=== PATIENT | male | born 1945 | race Caucasian/White ===

== ENCOUNTER 2020-03-21 06:10 | Outpatient (NON) | payer MEDICARE, SELFPAY ==
[2020-03-21 07:08] LABS: Phenytoin Dilantin 19 ug/mL (10-20)
== END 2020-03-21 06:11 ==
PROVIDERS: Visit Provider Family Medicine
DX: G40.909 Epilepsy, unspecified, not intractable, without status epilepticus (principal); Z79.899 Other long term (current) drug therapy
CPT/HCPCS: 36415; 80185

== ENCOUNTER 2020-04-18 06:24 | Outpatient (NON) | payer MEDICARE, SELFPAY ==
[2020-04-18 07:25] LABS: Alanine Aminotransferase 28 U/L (16-63); Albumin Level 3.8 g/dL (3.4-5.0); Alkaline Phosphatase 154 U/L (46-116); Anion Gap 6 mmol/L (8-16); Aspartate Amino Transferase 20 U/L (15-37); Bilirubin,Total 0.2 mg/dL (0.00-1.00); Blood Urea Nitrogen 12 mg/dL (7-18); Calcium 8.2 mg/dL (8.5-10.1); Carbon Dioxide 29 mmol/L (21-32); Chloride 96 mmol/L (98-108); Estimated Glomerular Filt Rate > 60; Glucose 84 mg/dL (70-99); Magnesium 2.3 mg/dL (1.8-2.4); Osmolality Calculated 270 mOsm/kg (285-295); Potassium 4.2 mmol/L (3.5-5.1); Sodium 131 mmol/L (136-145); Total Protein 7.4 g/dL (6.4-8.2)
== END 2020-04-18 06:25 ==
LOC: CHSLAB 06:25
PROVIDERS: Visit Provider Family Medicine
DX: E78.5 Hyperlipidemia, unspecified (principal); E83.42 Hypomagnesemia
CPT/HCPCS: 36415; 80053; 83735; 84443

== ENCOUNTER 2020-04-25 06:26 | Outpatient (NON) | payer MEDICARE, SELFPAY ==
[2020-04-25 07:21] LABS: Anion Gap 10 mmol/L (8-16); Blood Urea Nitrogen 9 mg/dL (7-18); Calcium 8.2 mg/dL (8.5-10.1); Carbon Dioxide 26 mmol/L (21-32); Chloride 94 mmol/L (98-108); Estimated Glomerular Filt Rate > 60; Glucose 91 mg/dL (70-99); Osmolality Calculated 268 mOsm/kg (285-295); Potassium 3.7 mmol/L (3.5-5.1); Sodium 130 mmol/L (136-145)
== END 2020-04-25 06:27 ==
PROVIDERS: Visit Provider Family Medicine
DX: G40.802 Other epilepsy, not intractable, without status epilepticus (principal); K21.9 Gastro-esophageal reflux disease without esophagitis; I69.951 Hemiplegia and hemiparesis following unspecified cerebrovascular disease affecting right dominant side
CPT/HCPCS: 36415; 80048

== ENCOUNTER 2020-06-10 07:26 | Outpatient (NON) | payer MEDICARE, SELFPAY ==
[2020-06-10 08:16] LABS: Basophils Absolute Auto 0.04 K/mm3 (0.00-0.10); Basophils Percent Auto 0.8 % (0.0-1.0); Eosinophils Absolute Auto 0.19 K/mm3 (0.02-0.50); Eosinophils Percent Auto 3.6 % (1.0-6.0); Hematocrit 36.6 % (37.0-46.0); Hemoglobin 12.4 g/dL (12.4-15.3); Immature Granulocyte Absolute 0.02 K/mm3 (0.00-0.00); Immature Granulocyte Percent A 0.4 % (0.0-0.0); Lymphocytes Absolute Auto 1.11 K/mm3 (1.10-4.50); Mean Corpuscular HGB Conc 33.9 g/dL (32.0-36.0); Mean Corpuscular Hemoglobin 31.6 pg (27.0-31.0); Mean Corpuscular Volume 93.1 fL (78.0-102.0); Mean Platelet Volume 10.6 fl (8.7-11.0); Monocytes Percent Auto 9.5 % (2.0-11.0); Neutrophils Absolute Auto 3.4 K/mm3 (1.7-7.2); Neutrophils Percent Auto 64.7 % (50.0-70.0); Platelet Count Result 240 K/mm3 (150-420); Red Blood Count 3.93 M/mm3 (4.70-6.10); Red Cell Distribution Width 12.8 % (11.6-14.4); White Blood Count 5.3 K/mm3 (4.8-10.8)
[2020-06-10 08:41] LABS: Alanine Aminotransferase 32 U/L (16-63); Albumin Level 3.5 g/dL (3.4-5.0); Alkaline Phosphatase 156 U/L (46-116); Anion Gap 8 mmol/L (8-16); Aspartate Amino Transferase 20 U/L (15-37); Bilirubin,Total 0.2 mg/dL (0.00-1.00); Blood Urea Nitrogen 8 mg/dL (7-18); Calcium 8.1 mg/dL (8.5-10.1); Carbon Dioxide 28 mmol/L (21-32); Chloride 98 mmol/L (98-108); Estimated Glomerular Filt Rate > 60; Glucose 81 mg/dL (70-99); Osmolality Calculated 275 mOsm/kg (285-295); Phenytoin Dilantin 13 ug/mL (10-20); Potassium 4.2 mmol/L (3.5-5.1); Sodium 134 mmol/L (136-145); Total Protein 7.1 g/dL (6.4-8.2)
== END 2020-06-10 07:27 ==
PROVIDERS: PCP Family Medicine; Visit Provider Family Medicine
DX: Z79.899 Other long term (current) drug therapy (principal)
CPT/HCPCS: 36415; 80053; 80185; 85025

== ENCOUNTER 2020-08-31 06:25 | Outpatient (NON) | payer MEDICARE, SELFPAY ==
[2020-08-31 07:05] LABS: Phenytoin Dilantin 15 ug/mL (10-20)
== END 2020-08-31 06:26 ==
LOC: CHSLAB 06:26
PROVIDERS: Visit Provider Family Medicine
DX: G40.802 Other epilepsy, not intractable, without status epilepticus (principal)
CPT/HCPCS: 36415; 80185

== ENCOUNTER 2020-10-04 11:19 | Outpatient (CLI) | payer MEDICARE, MEDICAID, SELFPAY ==
--- NOTE | ~2020-10-04 | XR_ITS ---
EXAMINATION: XR abdomen obstructive series DATE: 10/04/2020 12:38 INDICATION: Abdominal pain TECHNIQUE: Upright and supine views of the abdomen were obtained on five radiographs. COMPARISON: 04/22/2018, 04/21/2018 FINDINGS: No free intraperitoneal gas is identified. There is mild gaseous distention of the stomach. No dilated large or small bowel are identified. Gas and stool are seen to the level of the rectum. T here is significant heterotopic ossification near the right hip and and a left paraspinal location. IMPRESSION: 1. Mild gaseous distention of the stomach. No free intraperitoneal gas. Reviewed, dictated and finalized at location A.
== END 2020-10-04 11:20 | disposition home or self-care (01) ==
LOC: CHSIMG 11:21
PROVIDERS: PCP Family Medicine; Visit Provider Family Medicine
DX: R10.9 Unspecified abdominal pain (principal)
CPT/HCPCS: 74019

== ENCOUNTER 2020-12-05 06:45 | Outpatient (NON) | payer MEDICARE, SELFPAY ==
[2020-12-05 07:06] LABS: Basophils Absolute Auto 0.05 K/mm3 (0.00-0.10); Eosinophils Absolute Auto 0.12 K/mm3 (0.02-0.50); Eosinophils Percent Auto 2.3 % (1.0-6.0); Hematocrit 35.4 % (37.0-46.0); Immature Granulocyte Absolute 0.02 K/mm3 (0.00-0.00); Immature Granulocyte Percent A 0.4 % (0.0-0.0); Lymphocytes Absolute Auto 1.05 K/mm3 (1.10-4.50); Lymphocytes Percent Auto 20.3 % (18.0-42.0); Mean Corpuscular HGB Conc 33.9 g/dL (32.0-36.0); Mean Corpuscular Hemoglobin 31.3 pg (27.0-31.0); Mean Corpuscular Volume 92.4 fL (78.0-102.0); Mean Platelet Volume 9.7 fl (8.7-11.0); Monocytes Absolute Auto 0.51 K/mm3 (0.10-0.90); Monocytes Percent Auto 9.9 % (2.0-11.0); Neutrophils Absolute Auto 3.4 K/mm3 (1.7-7.2); Neutrophils Percent Auto 66.1 % (50.0-70.0); Platelet Count Result 350 K/mm3 (150-420); Red Blood Count 3.83 M/mm3 (4.70-6.10); Red Cell Distribution Width 12.9 % (11.6-14.4); White Blood Count 5.2 K/mm3 (4.8-10.8)
[2020-12-05 07:34] LABS: Alanine Aminotransferase 45 U/L (16-63); Albumin Level 3.2 g/dL (3.4-5.0); Alkaline Phosphatase 146 U/L (46-116); Anion Gap 8 mmol/L (8-16); Aspartate Amino Transferase 30 U/L (15-37); Bilirubin,Total 0.2 mg/dL (0.00-1.00); Blood Urea Nitrogen 7 mg/dL (7-18); Calcium 8.5 mg/dL (8.5-10.1); Carbon Dioxide 30 mmol/L (21-32); Chloride 98 mmol/L (98-108); Estimated Glomerular Filt Rate > 60; Glucose 88 mg/dL (70-99); Osmolality Calculated 279 mOsm/kg (285-295); Phenytoin Dilantin 9 ug/mL (10-20); Potassium 4.1 mmol/L (3.5-5.1); Sodium 136 mmol/L (136-145); Total Protein 7.3 g/dL (6.4-8.2)
[2020-12-07 10:51] LABS: Vitamin D 25 Hydroxy 37 ng/mL (30-100)
== END 2020-12-05 06:46 | disposition home or self-care (01) ==
PROVIDERS: Visit Provider Family Medicine
DX: E78.5 Hyperlipidemia, unspecified (principal); Z79.899 Other long term (current) drug therapy; M81.0 Age-related osteoporosis without current pathological fracture
CPT/HCPCS: 36415; 80053; 80185; 82306; 85025

== ENCOUNTER 2021-05-12 06:43 | Outpatient (NON) | payer MEDICARE, SELFPAY ==
[2021-05-12 07:42] LABS: Phenytoin Dilantin 17 ug/mL (10-20)
== END 2021-05-12 06:44 | disposition home or self-care (01) ==
LOC: CHSLAB 06:45
PROVIDERS: PCP Family Medicine; Visit Provider Family Medicine
DX: G40.802 Other epilepsy, not intractable, without status epilepticus (principal)
CPT/HCPCS: 36415; 80185

== ENCOUNTER 2021-06-07 07:04 | Outpatient (NON) | payer MEDICARE, SELFPAY ==
[2021-06-07 07:28] LABS: Basophils Absolute Auto 0.07 K/mm3 (0.00-0.10); Eosinophils Absolute Auto 0.21 K/mm3 (0.02-0.50); Eosinophils Percent Auto 2.9 % (1.0-6.0); Hemoglobin 13.1 g/dL (12.4-15.3); Immature Granulocyte Absolute 0.03 K/mm3 (0.00-0.00); Immature Granulocyte Percent A 0.4 % (0.0-0.0); Lymphocytes Absolute Auto 0.97 K/mm3 (1.10-4.50); Lymphocytes Percent Auto 13.5 % (18.0-42.0); Mean Corpuscular HGB Conc 32.8 g/dL (32.0-36.0); Mean Corpuscular Hemoglobin 31.3 pg (27.0-31.0); Mean Corpuscular Volume 95.5 fL (78.0-102.0); Mean Platelet Volume 10.8 fl (8.7-11.0); Monocytes Absolute Auto 0.66 K/mm3 (0.10-0.90); Monocytes Percent Auto 9.2 % (2.0-11.0); Neutrophils Absolute Auto 5.2 K/mm3 (1.7-7.2); Platelet Count Result 275 K/mm3 (150-420); Red Blood Count 4.19 M/mm3 (4.70-6.10); Red Cell Distribution Width 12.4 % (11.6-14.4); White Blood Count 7.2 K/mm3 (4.8-10.8)
[2021-06-07 07:42] LABS: Alanine Aminotransferase 28 U/L (16-63); Albumin Level 3.8 g/dL (3.4-5.0); Alkaline Phosphatase 193 U/L (46-116); Anion Gap 10 mmol/L (8-16); Aspartate Amino Transferase 18 U/L (15-37); Bilirubin,Total 0.2 mg/dL (0.00-1.00); Blood Urea Nitrogen 12 mg/dL (7-18); Calcium 8.4 mg/dL (8.5-10.1); Carbon Dioxide 29 mmol/L (21-32); Chloride 97 mmol/L (98-108); Estimated Glomerular Filt Rate > 60; Glucose 87 mg/dL (70-99); Osmolality Calculated 280 mOsm/kg (285-295); Potassium 4.3 mmol/L (3.5-5.1); Sodium 136 mmol/L (136-145); Total Protein 7.7 g/dL (6.4-8.2)
== END 2021-06-07 07:05 | disposition home or self-care (01) ==
LOC: CHSLAB 07:06
PROVIDERS: Visit Provider Family Medicine
DX: I69.951 Hemiplegia and hemiparesis following unspecified cerebrovascular disease affecting right dominant side (principal); M19.90 Unspecified osteoarthritis, unspecified site; M85.811 Other specified disorders of bone density and structure, right shoulder; G40.802 Other epilepsy, not intractable, without status epilepticus
CPT/HCPCS: 36415; 80053; 85025

== ENCOUNTER 2021-07-19 06:46 | Outpatient (NON) | payer MEDICARE, SELFPAY ==
[2021-07-19 07:27] LABS: Phenytoin Dilantin 13 ug/mL (10-20)
== END 2021-07-19 06:47 | disposition home or self-care (01) ==
PROVIDERS: Visit Provider Family Medicine
DX: Z79.899 Other long term (current) drug therapy (principal); R56.9 Unspecified convulsions
CPT/HCPCS: 36415; 80185

== ENCOUNTER 2021-07-26 06:44 | Outpatient (NON) | payer MEDICARE, SELFPAY ==
[2021-07-26 07:20] LABS: Alanine Aminotransferase 33 U/L (16-63); Cholesterol 196 mg/dL (0-200); HDL Direct 65 mg/dL (40-60); LDL Cholesterol Calculated 113 mg/dL (<130); Triglycerides 91 mg/dL (0-150)
== END 2021-07-26 06:45 | disposition home or self-care (01) ==
LOC: CHSLAB 06:51
PROVIDERS: Visit Provider Family Medicine
DX: E78.5 Hyperlipidemia, unspecified (principal)
CPT/HCPCS: 36415; 80061; 84460

== ENCOUNTER 2021-10-04 06:51 | Outpatient (NON) | payer MEDICARE, SELFPAY ==
[2021-10-04 07:37] LABS: Phenytoin Dilantin 20 ug/mL (10-20)
== END 2021-10-04 06:52 | disposition home or self-care (01) ==
LOC: CHSLAB 06:54
PROVIDERS: Visit Provider Family Medicine
DX: Z79.899 Other long term (current) drug therapy (principal)
CPT/HCPCS: 36415; 80185

== ENCOUNTER 2021-10-18 10:21 | Outpatient (CLI) | payer MEDICARE, MEDICAID, SELFPAY ==
--- NOTE | ~2021-10-18 | XR_ITS ---
XR knee RT 3V 10/18/2021 10:50 Indication: Chronic right knee pain Procedure: 3 views right knee Comparison: 03/01/2019 Findings: There is mild-moderate tricompartment osteoarthritis. No fracture or traumatic malalignment . No significant joint effusion. There is osteopenia. Impression: 1: Mild-moderate tricompartment osteoarthritis of the right knee. Reviewed, dictated and finalized at location B. Impression: 1: Mild-moderate tricompartment osteoarthritis of the right knee.
== END 2021-10-18 10:22 | disposition home or self-care (01) ==
LOC: CHSIMG 10:24
PROVIDERS: PCP Family Medicine; Visit Provider Family Medicine
DX: M25.561 Pain in right knee (principal)
CPT/HCPCS: 73562

== ENCOUNTER 2021-12-06 06:56 | Outpatient (NON) | payer MEDICARE, SELFPAY ==
[2021-12-06 08:15] LABS: Basophils Absolute Auto 0.05 K/mm3 (0.00-0.10); Basophils Percent Auto 0.7 % (0.0-1.0); Eosinophils Absolute Auto 0.13 K/mm3 (0.02-0.50); Eosinophils Percent Auto 1.9 % (1.0-6.0); Hematocrit 37.2 % (37.0-46.0); Hemoglobin 12.3 g/dL (12.4-15.3); Immature Granulocyte Absolute 0.03 K/mm3 (0.00-0.00); Immature Granulocyte Percent A 0.4 % (0.0-0.0); Lymphocytes Absolute Auto 0.84 K/mm3 (1.10-4.50); Lymphocytes Percent Auto 12.4 % (18.0-42.0); Mean Corpuscular HGB Conc 33.1 g/dL (32.0-36.0); Mean Corpuscular Hemoglobin 30.8 pg (27.0-31.0); Mean Corpuscular Volume 93.2 fL (78.0-102.0); Mean Platelet Volume 10.5 fl (8.7-11.0); Monocytes Absolute Auto 0.72 K/mm3 (0.10-0.90); Monocytes Percent Auto 10.6 % (2.0-11.0); Platelet Count Result 268 K/mm3 (150-420); Red Blood Count 3.99 M/mm3 (4.70-6.10); Red Cell Distribution Width 12.2 % (11.6-14.4); White Blood Count 6.8 K/mm3 (4.8-10.8)
[2021-12-06 08:27] LABS: Alanine Aminotransferase 33 U/L (16-63); Albumin Level 3.4 g/dL (3.4-5.0); Alkaline Phosphatase 194 U/L (46-116); Anion Gap 6 mmol/L (8-16); Aspartate Amino Transferase 25 U/L (15-37); Bilirubin,Total 0.2 mg/dL (0.00-1.00); Blood Urea Nitrogen 11 mg/dL (7-18); Calcium 8.3 mg/dL (8.5-10.1); Carbon Dioxide 30 mmol/L (21-32); Chloride 93 mmol/L (98-108); Estimated Glomerular Filt Rate > 60; Glucose 80 mg/dL (70-99); Osmolality Calculated 266 mOsm/kg (285-295); Sodium 129 mmol/L (136-145); Total Protein 7.7 g/dL (6.4-8.2)
[2021-12-11 20:22] LABS: Vitamin D 25 Hydroxy 34 ng/mL (30-100)
== END 2021-12-06 06:57 | disposition home or self-care (01) ==
LOC: CHSLAB 07:01
PROVIDERS: Visit Provider Family Medicine
DX: E55.9 Vitamin D deficiency, unspecified (principal); I69.951 Hemiplegia and hemiparesis following unspecified cerebrovascular disease affecting right dominant side; M19.90 Unspecified osteoarthritis, unspecified site
CPT/HCPCS: 36415; 80053; 82306; 85025

== ENCOUNTER 2021-12-18 06:36 | Outpatient (NON) | payer MEDICARE, SELFPAY ==
[2021-12-18 06:57] LABS: Anion Gap 6 mmol/L (8-16); Blood Urea Nitrogen 8 mg/dL (7-18); Carbon Dioxide 29 mmol/L (21-32); Chloride 90 mmol/L (98-108); Estimated Glomerular Filt Rate > 60; Glucose 87 mg/dL (70-99); Osmolality Calculated 257 mOsm/kg (285-295); Potassium 3.9 mmol/L (3.5-5.1); Sodium 125 mmol/L (136-145)
== END 2021-12-18 06:37 | disposition home or self-care (01) ==
LOC: CHSLAB 06:37
PROVIDERS: PCP Family Medicine; Visit Provider Family Medicine
DX: E87.1 Hypo-osmolality and hyponatremia (principal)
CPT/HCPCS: 36415; 80048

== ENCOUNTER 2021-12-22 06:56 | Outpatient (NON) | payer MEDICARE, SELFPAY ==
[2021-12-22 07:35] LABS: Anion Gap 7 mmol/L (8-16); Blood Urea Nitrogen 9 mg/dL (7-18); Calcium 8.8 mg/dL (8.5-10.1); Carbon Dioxide 29 mmol/L (21-32); Chloride 92 mmol/L (98-108); Estimated Glomerular Filt Rate > 60; Glucose 76 mg/dL (70-99); Osmolality Calculated 263 mOsm/kg (285-295); Potassium 4.9 mmol/L (3.5-5.1); Sodium 128 mmol/L (136-145)
== END 2021-12-22 06:57 | disposition home or self-care (01) ==
LOC: CHSLAB 06:58
PROVIDERS: PCP Family Medicine; Visit Provider Family Medicine
DX: M81.0 Age-related osteoporosis without current pathological fracture (principal); E87.1 Hypo-osmolality and hyponatremia
CPT/HCPCS: 36415; 80048

== ENCOUNTER 2021-12-27 06:26 | Outpatient (NON) | payer MEDICARE, SELFPAY ==
[2021-12-27 07:04] LABS: Anion Gap 6 mmol/L (8-16); Blood Urea Nitrogen 8 mg/dL (7-18); Calcium 8.4 mg/dL (8.5-10.1); Carbon Dioxide 28 mmol/L (21-32); Chloride 98 mmol/L (98-108); Estimated Glomerular Filt Rate > 60; Glucose 87 mg/dL (70-99); Osmolality Calculated 271 mOsm/kg (285-295); Potassium 4.6 mmol/L (3.5-5.1); Sodium 132 mmol/L (136-145)
== END 2021-12-27 06:27 | disposition home or self-care (01) ==
LOC: CHSLAB 06:29
PROVIDERS: PCP Family Medicine; Visit Provider Family Medicine
DX: I69.951 Hemiplegia and hemiparesis following unspecified cerebrovascular disease affecting right dominant side (principal)
CPT/HCPCS: 36415; 80048

== ENCOUNTER 2022-01-08 06:52 | Outpatient (NON) | payer MEDICARE, MEDICAID, SELFPAY ==
[2022-01-08 07:38] LABS: Anion Gap 8 mmol/L (8-16); Blood Urea Nitrogen 12 mg/dL (7-18); Calcium 8.9 mg/dL (8.5-10.1); Carbon Dioxide 30 mmol/L (21-32); Chloride 96 mmol/L (98-108); Estimated Glomerular Filt Rate > 60; Glucose 83 mg/dL (70-99); Osmolality Calculated 276 mOsm/kg (285-295); Potassium 4.4 mmol/L (3.5-5.1); Sodium 134 mmol/L (136-145)
== END 2022-01-08 06:53 | disposition home or self-care (01) ==
PROVIDERS: Visit Provider Family Medicine
DX: E87.1 Hypo-osmolality and hyponatremia (principal)
CPT/HCPCS: 80048

== ENCOUNTER 2022-02-05 06:31 | Outpatient (NON) | payer MEDICARE, MEDICAID, SELFPAY ==
[2022-02-05 07:35] LABS: Phenytoin Dilantin 13 ug/mL (10-20)
== END 2022-02-05 06:32 | disposition home or self-care (01) ==
LOC: CHSLAB 06:39
PROVIDERS: Visit Provider Family Medicine
DX: Z79.01 Long term (current) use of anticoagulants (principal)
CPT/HCPCS: 36415; 80185

== ENCOUNTER 2022-03-08 14:44 | Outpatient (CLI) | payer MEDICARE, MEDICAID, SELFPAY ==
--- NOTE | ~2022-03-08 | XR_ITS ---
XR chest 2V 03/08/2022 15:26 Indication: Lethargy. Confusion. Procedure: 2 view chest Comparison: Comparison to multiple prior studies sequentially, with oldest reviewed study dated 08/2014. Findings: Cardiomegaly. Mild interstitial edema. No pleural effusion or pneumothorax. No acute osseou s abnormality. Impression: 1: Cardiomegaly with mild interstitial edema. Atypical pneumonia less favored. Reviewed, dictated and finalized at location A. Impression: 1: Cardiomegaly with mild interstitial edema. Atypical pneumonia less favored.
[2022-03-08 15:33] LABS: Basophils Absolute Auto 0.03 K/mm3 (0.00-0.10); Basophils Percent Auto 0.5 % (0.0-1.0); Eosinophils Absolute Auto 0.15 K/mm3 (0.02-0.50); Eosinophils Percent Auto 2.4 % (1.0-6.0); Hematocrit 38.1 % (37.0-46.0); Hemoglobin 13.4 g/dL (12.4-15.3); Immature Granulocyte Absolute 0.03 K/mm3 (0.00-0.00); Immature Granulocyte Percent A 0.5 % (0.0-0.0); Lymphocytes Absolute Auto 0.42 K/mm3 (1.10-4.50); Lymphocytes Percent Auto 6.8 % (18.0-42.0); Mean Corpuscular HGB Conc 35.2 g/dL (32.0-36.0); Mean Corpuscular Hemoglobin 30.5 pg (27.0-31.0); Mean Corpuscular Volume 86.8 fL (78.0-102.0); Mean Platelet Volume 9.5 fl (8.7-11.0); Monocytes Absolute Auto 0.49 K/mm3 (0.10-0.90); Monocytes Percent Auto 7.9 % (2.0-11.0); Neutrophils Absolute Auto 5.1 K/mm3 (1.7-7.2); Neutrophils Percent Auto 81.9 % (50.0-70.0); Platelet Count Result 254 K/mm3 (150-420); Red Blood Count 4.39 M/mm3 (4.70-6.10); Red Cell Distribution Width 11.9 % (11.6-14.4); White Blood Count 6.2 K/mm3 (4.8-10.8)
[2022-03-08 15:57] LABS: Alanine Aminotransferase 31 U/L (16-63); Albumin Level 3.6 g/dL (3.4-5.0); Alkaline Phosphatase 221 U/L (46-116); Aspartate Amino Transferase 34 U/L (15-37); Bilirubin,Total 0.3 mg/dL (0.00-1.00); Blood Urea Nitrogen 10 mg/dL (7-18); Carbon Dioxide 30 mmol/L (21-32); Estimated Glomerular Filt Rate > 60; Glucose 103 mg/dL (70-99); Total Protein 7.1 g/dL (6.4-8.2)
[2022-03-08 16:04] LABS: Anion Gap 6 mmol/L (8-16); Chloride 80 mmol/L (98-108); Osmolality Calculated 241 mOsm/kg (285-295); Potassium 4.4 mmol/L (3.5-5.1)
[2022-03-08 16:08] LABS: Influenza A QL RT-PCR Negative (Negative); Influenza B QL RT-PCR Negative (Negative); SARS-CoV-2 RNA PCR Negative (Negative); Sodium 116 mmol/L (136-145)
== END 2022-03-08 14:45 | disposition home or self-care (01) ==
LOC: CHSIMG 14:48
PROVIDERS: PCP Family Medicine; Visit Provider Nurse Practitioner Family
DX: R53.83 Other fatigue (principal); R41.0 Disorientation, unspecified; Z20.822 Contact with and (suspected) exposure to COVID-19
CPT/HCPCS: 36415; 71046; 80053; 85025; 87502; C9803; U0003; U0005

== ENCOUNTER 2022-03-08 16:36 | Observation (INO) | payer MEDICARE, MEDICAID, SELFPAY ==
--- NOTE | ~2022-03-08 | CT_ITS ---
EXAMINATION: CT brain wo con DATE: 03/08/2022 18:15 INDICATION: Weakness and confusion TECHNIQUE: Computed tomography (CT) of the head was performed without intravenous contrast. The dose- length product was 1210.67 mGy-cm. Automated exposure control and iterative reconstruction technique were employed. COMPARISON: None FINDINGS: Study limited by motion artifact. There are chronic left lacunar, bilateral cerebellar and right parietal lobe infarctions. Mild compensatory dilation of the ventricles. There are scattered mi ld periventricular and subcortical white matter changes, most likely related to small vessel ischemic disease (microangiopathy). Paranasal sinuses and mastoids are pneumatized. There is intracranial ath erosclerosis. No definite intracranial hemorrhage. IMPRESSION: 1. Limited examination due to motion. No acute intracranial abnormality. 2: Chronic right parietal, bilateral cerebellar and left lacunar infarctions. 3: Chronic age-related findings. Reviewed, dictated and finalized at location A.
--- NOTE | ~2022-03-08 | XR_ITS ---
EXAMINATION: XR chest 1V portable Exam Date/Time: 03/10/2022 18:15 CDT HISTORY: unresponsive Comparison: 03/08/2022. RESULT: Lines, tubes, and devices: Thin, radiodense lines protect over the right and left hemithoraces, pres umably external to the patient. Partially visualized cervical fusion hardware. Lungs and pleura: Diffuse reticular opacities. Bilateral costophrenic angle blunting. Subsegmental b ibasilar opacities. Cardiomediastinal silhouette: Stable. Other: No acute osseous or upper abdominal finding. IMPRESSION: Pulmonary opacities likely represent interstitial edema with bilateral effusions and bibasilar atelec tasis. Infection is not excluded. Reviewed, dictated and finalized at location K. IMPRESSION: Pulmonary opacities likely represent interstitial edema with bilateral effusion s and bibasilar atelectasis. Infection is not excluded.
[2022-03-08 16:46] VITALS: BP 156/88; PULSE 80; RESP 18; TEMP 36.3; O2SAT 93
--- NOTE | 2022-03-08 16:53 | ECG_ITS ---
Measurements Intervals [place] Rate: 77 P: 26 PA: 142 QRS: 7 QRSD: 114 T: 229 QT: 393 QTc: 446 Interpretive Statements SINUS RHYTHM WITH OCCASIONAL SUPRAVENTRICULAR PREMATURE COMPLEXES MODERATE INTRAVENTRICULAR CONDUCTION DELAY [110+ ms QRS DURATION] NONSPECIFIC T-WAVE ABNORMALITY, CONSIDER INFERIOR ISCHEMIA [-0.1+ mV T-WAVE IN II/aVF] NO PREVIOUS ECG AVAILABLE FOR COMPARISON Electronically Signed On 03-09-2022 8:05:55 CDT by Robbie Sevilla M.D.
[2022-03-08 17:37] LABS: Basophils Absolute Auto 0.03 K/mm3 (0.00-0.10); Basophils Percent Auto 0.5 % (0.0-1.0); Eosinophils Absolute Auto 0.14 K/mm3 (0.02-0.50); Eosinophils Percent Auto 2.1 % (1.0-6.0); Hematocrit 39.2 % (37.0-46.0); Hemoglobin 13.7 g/dL (12.4-15.3); Immature Granulocyte Absolute 0.02 K/mm3 (0.00-0.00); Immature Granulocyte Percent A 0.3 % (0.0-0.0); Lymphocytes Absolute Auto 0.47 K/mm3 (1.10-4.50); Lymphocytes Percent Auto 7.1 % (18.0-42.0); Mean Corpuscular HGB Conc 34.9 g/dL (32.0-36.0); Mean Corpuscular Hemoglobin 30.9 pg (27.0-31.0); Mean Corpuscular Volume 88.3 fL (78.0-102.0); Mean Platelet Volume 9.7 fl (8.7-11.0); Monocytes Absolute Auto 0.78 K/mm3 (0.10-0.90); Monocytes Percent Auto 11.7 % (2.0-11.0); Neutrophils Absolute Auto 5.2 K/mm3 (1.7-7.2); Neutrophils Percent Auto 78.3 % (50.0-70.0); Platelet Count Result 231 K/mm3 (150-420); Red Blood Count 4.44 M/mm3 (4.70-6.10); Red Cell Distribution Width 12.1 % (11.6-14.4); White Blood Count 6.7 K/mm3 (4.8-10.8)
[2022-03-08 17:57] LABS: Alanine Aminotransferase 33 U/L (16-63); Albumin Level 3.5 g/dL (3.4-5.0); Alkaline Phosphatase 222 U/L (46-116); Anion Gap 5 mmol/L (8-16); Aspartate Amino Transferase 34 U/L (15-37); Bilirubin,Total 0.2 mg/dL (0.00-1.00); Blood Urea Nitrogen 10 mg/dL (7-18); Calcium 8.1 mg/dL (8.5-10.1); Carbon Dioxide 28 mmol/L (21-32); Chloride 80 mmol/L (98-108); Estimated CRCL calculation 152 ml/min; Estimated Glomerular Filt Rate > 60; Glucose 99 mg/dL (70-99); Osmolality Calculated 235 mOsm/kg (285-295); Potassium 4.1 mmol/L (3.5-5.1); Total Protein 7.4 g/dL (6.4-8.2)
[2022-03-08 17:58] LABS: Sodium 113 mmol/L (136-145)
[2022-03-08] MEDS: SODIUM CHLORIDE 0.9% IV 1,000 ML 999 ML IV CONT (18:22)
--- NOTE | 2022-03-08 18:41 | PC.NURSE ---
multiple attempt to place unsuccessful. 16 fr unsuccessful and coude 14 fr unsuccessful. placed pedi colection bag to penis to attempt to collect urine.
[2022-03-08 18:53] VITALS: BP 164/93; PULSE 87; RESP 20; TEMP 37.1; O2SAT 97
--- NOTE | 2022-03-08 18:54 | ED.RECABL ---
HPI - Recheck/Abnormal Lab/Rx General Chief Complaint: Recheck/Abnormal Lab/Rx Stated Complaint: From assisted Time Seen by Provider: 03/08/22 16:40 Source: patient and RN notes reviewed Mode of arrival: wheelchair Limitations: no limitations History of Present Illness MD complaint: abnormal lab Returns today for: called because of abnormal lab/test Description of abnormal result: hyponatremia and hypochloremia Symptoms since prior visit: no new symptoms Context: called for abnormal lab result Associated symptoms: other (earlier confusion, none evident in the ED) Treatments prior to arrival: other (none.) Related Data Home Medications Medication Instructions Recorded Confirmed atorvastatin 80 mg tablet 80 mg PO DAILY 04/19/19 11/20/21 docusate sodium 100 mg capsule 100 mg PO TID 04/19/19 11/20/21 furosemide 40 mg tablet (Lasix) 40 mg PO QAM 04/19/19 11/20/21 loratadine 10 mg tablet (Claritin) 10 mg PO DAILY 04/19/19 11/20/21 phenytoin sodium extended 100 mg 100 mg PO TID 04/19/19 11/20/21 capsule (Dilantin Kapseal) tizanidine 2 mg capsule 2 mg PO Q8H PRN 04/19/19 11/20/21 acetaminophen 500 mg tablet 1,000 mg PO .Q8hrs PRN PRN 06/30/19 11/20/21 (Tylenol Extra Strength) bisacodyl 10 mg rectal suppository 10 mg RECTAL DAILY PRN 06/30/19 11/20/21 calcium carbonate 600 mg-vitamin 1 tablet PO BID 06/30/19 11/20/21 D3 10 mcg (400 unit) tablet carbamide peroxide 6.5 % ear drops 5 drop RIGHT EAR Q12H 06/30/19 11/20/21 naproxen 500 mg tablet 500 mg PO BID 06/30/19 11/20/21 aspirin 81 mg tablet 81 mg PO DAILY 03/08/22 03/08/22 cholecalciferol (vitamin D3) 50 50 mcg PO DAILY 03/08/22 03/08/22 mcg (2,000 unit) tablet docusate sodium 100 mg tablet 100 mg PO DAILY 03/08/22 03/08/22 lactulose 10 gram/15 mL oral 10 g PO DAILY 03/08/22 03/08/22 solution omeprazole 20 mg BYMOUTH DAILY 03/08/22 03/08/22 pregabalin 75 mg capsule 75 mg PO BID 03/08/22 03/08/22 psyllium husk 0.52 gram capsule 0.52 g PO DAILY 03/08/22 03/08/22 Allergies Allergy/AdvReac Type Severity Reaction Status Date / Time No Known Allergies Allergy Verified 11/20/21 09:33 Review of Systems Review of Systems: All systems reviewed & are unremarkable except as noted in HPI and below Constitutional: Constitutional: Reports no additional constitutional complaints Eyes: Eyes: Reports no additional eye complaints ENT: Reports system reviewed and no additional complaints, except as documented Cardiovascular: Cardiovascular: Reports no additional cardiovascular complaints Respiratory: Respiratory: Reports no additional respiratory complaints Gastrointestinal: Gastrointestinal: Reports no additional gastrointestinal complaints Musculoskeletal: Musculoskeletal: Reports no additional musculoskeletal complaints Integumentary/Breasts: Skin/Breast: Reports system reviewed and no additional complaints, except as docu Neurologic: Reports system reviewed and no additional complaints, except as documented and Reports confusion Psychiatric: Psychiatric: Reports no additional psychiatric complaints Endocrine: Endocrine: Reports no additional endocrine complaints Hematologic/Lymphatic: Hematologic/Lymphatic: Reports no additional hematologic/lymphatic complaints Allergic/Immunologic: Allergic/Immunologic: Reports no additional allergic/immunologic complaints PMFSH Past Medical History Medical History History of CVA (cerebrovascular accident) Hyperlipidemia Hyponatremia Overweight Paraplegia Paraplegia Polio Psoriasis Seizures Social History Social History Smoking status: Never smoker Alcohol intake: never Exam Const: General: healthy appearing, no acute distress and well nourished Nutritional Appearance: well nourished Orientation/consciousness: patient oriented x3 Limitations: no limitations HENMT: Head: normal to inspection
--- NOTE | 2022-03-08 19:09 | PC.NURSE ---
Report to PAT Monahan. no questions or concerns at this time.
[2022-03-08 20:00] VITALS: BP 153/83; PULSE 87; RESP 22; TEMP 36.1; O2SAT 94
[2022-03-08 20:34] VITALS: BMI 28.3
--- NOTE | 2022-03-08 20:41 | PC.NURSE ---
Patient admitted to room 226 from the ER, is alert with some confusion, no c/o pain.
[2022-03-08 20:46] VITALS: BP 157/70; PULSE 88; RESP 20; TEMP 36.6; O2SAT 96
[2022-03-08] MEDS: SODIUM CHLORIDE 0.9% IV 1,000 ML 150 ML IV CONT (21:00)
[2022-03-08] MEDS: PREGABALIN (*CRX) 25 MG CAPSULE 75 MG PO (21:04)
[2022-03-08] MEDS: PHENYTOIN SODIUM 100 MG EXTENDED RELEASE CAP PO (21:04)
[2022-03-08] MEDS: traMADol HCL (*CRX) 50 MG TABLET PO (21:06)
[2022-03-08] MEDS: traZODone HCL 50 MG TABLET PO (21:10)
[2022-03-08] MEDS: TIZANIDINE HCL 2 MG TABLET PO (21:11)
[2022-03-08 22:00] VITALS: BP 153/83; PULSE 87; RESP 22; TEMP 36.1; O2SAT 94
[2022-03-08 23:54] VITALS: BP 123/76; PULSE 72; RESP 20; TEMP 36.2; O2SAT 91
[2022-03-09] MEDS: SODIUM CHLORIDE 0.9% IV 1,000 ML 150 ML IV CONT (03:18)
[2022-03-09 03:51] VITALS: BP 142/78; PULSE 87; RESP 20; TEMP 35.9; O2SAT 92
[2022-03-09 05:42] LABS: Hematocrit 36.7 % (37.0-46.0); Hemoglobin 12.9 g/dL (12.4-15.3); Mean Corpuscular HGB Conc 35.1 g/dL (32.0-36.0); Mean Corpuscular Volume 88.2 fL (78.0-102.0); Mean Platelet Volume 9.6 fl (8.7-11.0); Platelet Count Result 209 K/mm3 (150-420); Red Blood Count 4.16 M/mm3 (4.70-6.10); Red Cell Distribution Width 12.1 % (11.6-14.4)
--- NOTE | 2022-03-09 05:50 | PM.IMHP ---
H&P: HPI History of Present Illness Date/Time: 03/09/22 05:50 Chief Complaint: hyponatremia Narrative: This is a 77 YO male that presented to our ED from the [place] due to adnormal labs. Patient NA was 116 at the [facility] repeat in the emergency department 113. Patient has a past medical history of CVA, hyperlipidemia, hyponatremia, paraplegia, polio, and seizure. Patient is a poor historian all information obtained from medical record. Vital signs 96.3, 18, 80, 156/88 and 93% on room air, WBC 6.7, hemoglobin 13.7, hematocrit 39.2, platelets 231, sodium 113, potassium 4.1, chloride 80, BUN 10, creatinine 0.32, glucose 99, total bilirubin 0.2, AST 34, ALT 33, patient will be admitted for hyponatremia, CT of the head shows no acute findings Patient does not appear to be in any distress at this time. He is arousable with stimulation Review of Systems Review of Systems: ROS unobtainable: Yes unobtainable due to mental status PMFSH Past Medical History Medical History History of CVA (cerebrovascular accident) Hyperlipidemia Hyponatremia Overweight Paraplegia Paraplegia Polio Psoriasis Seizures Social History Social History Smoking status: Unknown if ever smoked Second hand tobacco smoke exposure: No Alcohol intake: unknown Substance use: unknown Spiritual care concerns: No Meds Home Medications and Allergies Home Medications Medication Instructions Recorded Confirmed Type atorvastatin 80 mg tablet 80 mg PO DAILY 04/19/19 03/08/22 History docusate sodium 100 mg capsule 100 mg PO TID PRN Constipation 04/19/19 03/08/22 History fluticasone propionate 50 1 spray intranasal DAILY PRN nasal 04/19/19 03/08/22 Rx mcg/actuation nasal congestion #9.9 mL spray,suspension (Allergy Relief (fluticasone)) furosemide 40 mg tablet (Lasix) 20 mg PO QAM 04/19/19 03/08/22 History loratadine 10 mg tablet (Claritin) 10 mg PO DAILY 04/19/19 03/08/22 History phenytoin sodium extended 100 mg 100 mg PO TID 04/19/19 03/08/22 History capsule (Dilantin Kapseal) tizanidine 2 mg capsule 2 mg PO TID 04/19/19 03/08/22 History acetaminophen 500 mg tablet 1,000 mg PO .Q8hrs PRN PRN Pain, 06/30/19 03/08/22 History (Tylenol Extra Strength) Moderate bisacodyl 10 mg rectal suppository 10 mg RECTAL DAILY PRN Constipation 06/30/19 03/08/22 History calcium carbonate 600 mg-vitamin 1 tablet PO BID 06/30/19 03/08/22 History D3 10 mcg (400 unit) tablet carbamide peroxide 6.5 % ear drops 5 drop RIGHT EAR Q12H PRN Ear Wax 06/30/19 03/08/22 History naproxen 500 mg tablet 250 mg PO BID 06/30/19 03/08/22 History aspirin 81 mg tablet 81 mg PO DAILY 03/08/22 03/08/22 History cholecalciferol (vitamin D3) 50 50 mcg PO DAILY 03/08/22 03/08/22 History mcg (2,000 unit) tablet docusate sodium 100 mg tablet 100 mg PO DAILY 03/08/22 03/08/22 History lactulose 10 gram/15 mL oral 10 g PO DAILY 03/08/22 03/08/22 History solution omeprazole 20 mg BYMOUTH DAILY 03/08/22 03/08/22 History pregabalin 75 mg capsule 75 mg PO BID 03/08/22 03/08/22 History psyllium husk 0.52 gram capsule 0.52 g PO DAILY 03/08/22 03/08/22 History Allergies Allergy/AdvReac Type Severity Reaction Status Date / Time No Known Allergies Allergy Verified 11/20/21 09:33 Vital Signs Vital Signs - 24 hr 03/08/22 16:46 03/08/22 18:53 03/08/22 20:46 Temperature 97.3 F L 98.7 F 98 F Pulse Rate 80 87 88 Respiratory Rate 18 20 20 Blood Pressure 156/88 H 164/93 H 157/70 H Pulse Oximetry 93 97 96 Oxygen Delivery Room Air Room Air Room Air 03/08/22 20:00 03/08/22 22:00 03/08/22 23:54 Temperature 96.9 F L 96.9 F L 97.2 F L Pulse Rate 87 87 72 Respiratory Rate 22 H 22 H 20 Blood Pressure 153/83 H 153/83 H 123/76 Pulse Oximetry 94 94 91 Oxygen Delivery Room Air Room Air Room Air 03/09/22 03:51 Temperature 96.7 F L Pulse Rate 87 Respiratory Rate 20
[2022-03-09 05:58] LABS: Alanine Aminotransferase 26 U/L (16-63); Albumin Level 3.1 g/dL (3.4-5.0); Alkaline Phosphatase 210 U/L (46-116); Anion Gap 5 mmol/L (8-16); Aspartate Amino Transferase 27 U/L (15-37); Bilirubin,Total 0.3 mg/dL (0.00-1.00); Blood Urea Nitrogen 8 mg/dL (7-18); Calcium 7.6 mg/dL (8.5-10.1); Carbon Dioxide 31 mmol/L (21-32); Chloride 84 mmol/L (98-108); Estimated CRCL calculation 152 ml/min; Estimated Glomerular Filt Rate > 60; Glucose 84 mg/dL (70-99); Osmolality Calculated 247 mOsm/kg (285-295); Potassium 3.6 mmol/L (3.5-5.1); Total Protein 6.7 g/dL (6.4-8.2)
--- NOTE | 2022-03-09 06:00 | PC.NURSE ---
Lab called to report critical sodium value of 120.
[2022-03-09 06:01] LABS: Sodium 120 mmol/L (136-145)
--- NOTE | 2022-03-09 06:05 | PC.NURSE ---
Heather Hernandez NP, notified of pt's critical sodium value of 120; Orders received and noted.
[2022-03-09 08:00] VITALS: BP 122/64; PULSE 81; RESP 16; TEMP 35.9; O2SAT 91
[2022-03-09] MEDS: ENOXAPARIN 40 MG/0.4 ML SYRINGE SUB-Q (10:13)
[2022-03-09] MEDS: PANTOPRAZOLE SODIUM IV 40 MG VIAL IV PUSH (10:14)
[2022-03-09] MEDS: LORATADINE 10 MG TABLET PO (10:14)
[2022-03-09] MEDS: ATORVASTATIN 40 MG TABLET 80 MG PO (10:14)
[2022-03-09] MEDS: PREGABALIN (*CRX) 25 MG CAPSULE 75 MG PO ×2 (10:14→20:48)
[2022-03-09] MEDS: CHOLECALCIFEROL 1,000 UNITS TABLET 2000 UNITS PO (10:14)
[2022-03-09] MEDS: DOCUSATE SODIUM 100 MG CAPSULE PO (10:15)
[2022-03-09] MEDS: TIZANIDINE HCL 2 MG TABLET PO ×3 (10:15→17:06)
[2022-03-09] MEDS: PHENYTOIN SODIUM 100 MG EXTENDED RELEASE CAP 200 MG PO (10:18)
[2022-03-09 12:00] VITALS: BP 129/73; PULSE 77; RESP 17; TEMP 35.8; O2SAT 95
[2022-03-09] MEDS: SODIUM CHLORIDE 0.9% IV 1,000 ML 100 ML IV CONT ×2 (13:02→23:26)
[2022-03-09] MEDS: PHENYTOIN SODIUM 100 MG EXTENDED RELEASE CAP PO ×2 (13:52→17:06)
--- NOTE | 2022-03-09 15:00 | PC.NURSE ---
Attempted to apply condom catheter to patient in order to obtain UA. Attempt was unsuccessful at this time.
[2022-03-09 15:58] VITALS: BP 145/82; PULSE 76; RESP 17; TEMP 35.5; O2SAT 93
--- NOTE | 2022-03-09 18:20 | PC.NURSE ---
Charting by Inna Drew, student nurse has been reviewed and agreed with by this nurse.
[2022-03-09] MEDS: traZODone HCL 50 MG TABLET PO (20:51)
[2022-03-09 23:57] VITALS: BP 134/62; PULSE 81; RESP 17; TEMP 35.7; O2SAT 90
[2022-03-10] VITALS (16 sets, daily range): BP systolic 50–173; BP diastolic 30–94; PULSE 80–98; RESP 13–25; TEMP 35.8–36.4; O2SAT 72–100
--- NOTE | 2022-03-10 02:16 | PC.NURSE ---
Pt continuing to scream out for assistance despite having a modified call light that the pt is capable of using. Pt is a&ox3 and is aware that screaming is not appropriate. Pt verbalized understanding of teaching concierge receptionist light use prior to this occurrence and has done so again. Further reinforcement on appropriate behavior needed. Bed in lowest position, room light on per pt request, side railsx3, and call light w/in reach for pt safety.
[2022-03-10 05:29] LABS: Hematocrit 35.3 % (37.0-46.0); Hemoglobin 12.5 g/dL (12.4-15.3); Mean Corpuscular HGB Conc 35.4 g/dL (32.0-36.0); Mean Corpuscular Hemoglobin 31.2 pg (27.0-31.0); Mean Platelet Volume 10.2 fl (8.7-11.0); Platelet Count Result 216 K/mm3 (150-420); Red Blood Count 4.01 M/mm3 (4.70-6.10); White Blood Count 6.2 K/mm3 (4.8-10.8)
--- NOTE | 2022-03-10 05:46 | PC.NURSE ---
This RN attempted to insert a 16 tamazight coude catheter using sterile technique. Inna Astudillo RN assisted w/process. The catheter would stop once inserted a few cm, but w/some maneuvering the catheter would advance farther. Extremely cloudy urine flashed back once catheter had advanced farther, but each attempt to inflate the balloon the pt could feel the inflation. This RN attempted to pull back slightly after deflating the balloon and angle the catheter differently, but each attempt at advancing the catheter would not go any further. Thus not allowing the catheter to be fully placed. The flashback of cloudy urine could not be collected. The pt started to verbalize discomfort and so the catheter was removed. The tip of the catheter removed in one piece. A condom catheter was placed afterwards. The hair around the area was trimmed so not to cause discomfort if the adhesive would pull. The area was cleaned again before placement occurred. The foreskin is rolled over the tip of the penis when condom catheter was placed. This RN communicated w/the pt and explained the difference b/w the different types of catheters and verbalized understanding, and also discussed the possible reasons the coude could not advance. Pt stated he felt like he had something in his R eye. Mucous could be found in the area so the area was cleaned w/a warm water cloth. Pt stated his eye felt better. Call light w/in reach, side railsx3, night light on, bed in lowest position for pt safety.
[2022-03-10 05:48] LABS: Alanine Aminotransferase 27 U/L (16-63); Albumin Level 2.8 g/dL (3.4-5.0); Alkaline Phosphatase 200 U/L (46-116); Anion Gap 6 mmol/L (8-16); Aspartate Amino Transferase 25 U/L (15-37); Bilirubin,Total 0.2 mg/dL (0.00-1.00); Blood Urea Nitrogen 5 mg/dL (7-18); Calcium 7.2 mg/dL (8.5-10.1); Carbon Dioxide 28 mmol/L (21-32); Chloride 85 mmol/L (98-108); Estimated CRCL calculation 213 ml/min; Estimated Glomerular Filt Rate > 60; Glucose 84 mg/dL (70-99); Magnesium 1.7 mg/dL (1.8-2.4); Osmolality Calculated 244 mOsm/kg (285-295); Potassium 3.6 mmol/L (3.5-5.1); Total Protein 6.4 g/dL (6.4-8.2)
[2022-03-10 05:50] LABS: Sodium 119 mmol/L (136-145)
--- NOTE | 2022-03-10 05:50 | PC.NURSE ---
Lab called to report critical sodium value of 119.
--- NOTE | 2022-03-10 05:50 | PC.NURSE ---
Heather Hernandez NP, returned the phone call and new orders were received.
--- NOTE | 2022-03-10 06:35 | PC.NURSE ---
Attempted to contact Heather Hernandez NP, to report critical sodium value but no answer. Message left on voice mail.
[2022-03-10] MEDS: PHENYTOIN SODIUM 100 MG EXTENDED RELEASE CAP 200 MG PO (08:05)
[2022-03-10] MEDS: CHOLECALCIFEROL 1,000 UNITS TABLET 2000 UNITS PO (09:05)
[2022-03-10] MEDS: TIZANIDINE HCL 2 MG TABLET PO ×2 (09:06→12:18)
[2022-03-10] MEDS: DOCUSATE SODIUM 100 MG CAPSULE PO (09:06)
[2022-03-10] MEDS: PREGABALIN (*CRX) 25 MG CAPSULE 75 MG PO (09:07)
[2022-03-10] MEDS: ENOXAPARIN 40 MG/0.4 ML SYRINGE SUB-Q (09:07)
[2022-03-10 09:31] LABS: Bilirubin Urine 1+ (Negative); Blood Urine 3+ (Negative); Glucose Urine UA Negative (Negative); Ketones Urine Negative (Negative); Leukocyte Esterase Ur 1+ LEU/UL (Negative); Nitrate Urine Negative (Negative); Protein Urine 1+ (Negative); Specific Grav Ur 1.015 (1.010-1.020); Urobilinogen Urine 0.2 mg/dL (0.2-1.0)
[2022-03-10 09:35] LABS: Add Urine Microscopic? YES
[2022-03-10 09:36] LABS: Appearance Urine Turbid (Clear); Color Urine Light Brown (Yellow); RBC Urine >75 /hpf (0-2); WBC Clumps Urine Present /hpf
[2022-03-10 09:37] LABS: Bacteria Urine 4+ /hpf
[2022-03-10] MEDS: LORATADINE 10 MG TABLET PO (10:07)
[2022-03-10] MEDS: ATORVASTATIN 40 MG TABLET 80 MG PO (10:08)
[2022-03-10] MEDS: MAGNESIUM OXIDE 400 MG TABLET PO (11:00)
--- NOTE | 2022-03-10 11:38 | WPDPN ---
Progress Note: A&P Assessment and Plan (1) Hyponatremia: Code(s): E87.1 - Hypo-osmolality and hyponatremia Status: Acute Assessment and Plan: [id number]>113>120>119 baseline sodium 129-134 Patient received fluids not corrected will start fluid restriction TSH, osmolality pending X-ray normal CT of the chest and head no acute findings Neuro check (2) History of CVA (cerebrovascular accident): Code(s): Z86.73 - Personal history of transient ischemic attack (TIA), and cerebral infarction without residual deficits Status: Acute (3) Paraplegia: Code(s): G82.20 - Paraplegia, unspecified Status: Acute (4) Psoriasis: Code(s): L40.9 - Psoriasis, unspecified Status: Acute (5) Seizures: Code(s): R56.9 - Unspecified convulsions Status: Acute Assessment and Plan: Keppra Neurochecks (6) Hyperlipidemia: Code(s): E78.5 - Hyperlipidemia, unspecified Status: Acute Assessment and Plan: Continue atorvastatin (7) Electrolyte imbalance: Code(s): E87.8 - Other disorders of electrolyte and fluid balance, not elsewhere classified Status: Acute Assessment and Plan: Magnesium level 1.7 Continue supplementaryreplacement (8) Acute bronchitis: Code(s): J20.9 - Acute bronchitis, unspecified Status: Acute (9) Abnormal finding on urinalysis: Code(s): R82.90 - Unspecified abnormal findings in urine Status: Acute Assessment and Plan: Patient's UA positive for blood leukocyte Estrace and bacteria Possible blood to traumatic Vasquez catheter placement. Several attempts to place Vasquez catheter all attempts unsuccessful UA culture pending Will start Macrobid WBCs within normal limits patient afebrile Subjective Date/time seen: 03/10/22 11:38 Interval history: Patient notes that his buttocks is with pain. Assessed by nursing staff no breakdown noted. Patient refuses to let staff turn or place pillow under buttocks. Patient often screams out help once as what he needed help he can answer questions. Patient does not appear to be in any distress. Review of Systems Review of Systems: ROS unobtainable: Yes unobtainable due to mental status Neurologic: Reports Abnormal speech present Exam Narrative: GENERAL: This is a well-nourished, well-developed patient, in no apparent distress. HEAD: normocephalic, atraumatic. EYES: PERRL. Sclera clear/white. Vision is grossly intact. EARS: External ears normal, auditory canals clear and without drainage, TMs normal without perforation. Hearing grossly intact. NOSE: External nose normal with no obvious nasal discharge, nares without redness, no rhinorrhea. THROAT: Mucous membranes moist, posterior pharynx clear. NECK: Neck supple, non-tender without lymphadenopathy, masses or thyromegaly. CARDIOVASCULAR: Regular rate and rhythm without murmurs, gallops, or rubs. RESPIRATORY: Clear to auscultation. Breath sounds equal bilaterally. No wheezes, rales, or rhonchi. GASTROINTESTINAL: Abdomen soft, non-tender, nondistended. Bowel sounds are active. No hepato-splenomegaly, or palpable masses. No guarding. SKIN: warm, intact with no suspicious lesions or rash, good texture and turgor. NEURO: Patient lethargic arousable with stimulation EXTREMITIES: Lower extremities flaccid with upper extremity contraction to the bilateral hands Const: General: no acute distress and lethargic Orientation/consciousness: lethargic HENMT: Head: normal to inspection Eyes: General: appearance normal, both eyes and all related structures Neck: Neck: normal visual inspection Chest: Chest palpation & inspection: normal inspection of the chest Resp: Effort & Inspection: normal respiratory effort Auscultation: clear to auscultation bilaterally Cardio: Rate: regular rate Peripheral pulses: Peripheral pulses 2+ throughout GI: Inspection: normal to inspection Skin: Gen
[2022-03-10] MEDS: HYDROcodone/acetaminophen (*CRX) 5-325 MG TABLET 1 TAB PO (12:17)
[2022-03-10] MEDS: lisinopriL 20 MG TABLET PO (12:19)
[2022-03-10] MEDS: ACETAMINOPHEN 325 MG TABLET 650 MG PO (12:20)
[2022-03-10] MEDS: PHENYTOIN SODIUM 100 MG EXTENDED RELEASE CAP PO (12:30)
[2022-03-10] MEDS: NITROFURANTOIN MONOHYD MACROCR 100 MG CAP PO (12:46)
--- NOTE | 2022-03-10 18:24 | ECG_ITS ---
Measurements Intervals [place] Rate: 86 P: 35 UT: 128 QRS: 1 QRSD: 121 T: 2 QT: 385 QTc: 462 Interpretive Statements SINUS RHYTHM WITH OCCASIONAL VENTRICULAR PREMATURE COMPLEXES Nonspecific ST and T-wave changes COMPARED TO ECG 03/08/2022 17:18:44 NO SIGNIFICANT CHANGES Electronically Signed On 03-13-2022 19:37:11 CDT by Toya Head M.D.
[2022-03-10 18:36] LABS: Hematocrit 35.8 % (37.0-46.0); Hemoglobin 12.5 g/dL (12.4-15.3); Mean Corpuscular HGB Conc 34.9 g/dL (32.0-36.0); Mean Corpuscular Hemoglobin 31.2 pg (27.0-31.0); Mean Corpuscular Volume 89.3 fL (78.0-102.0); Mean Platelet Volume 10.1 fl (8.7-11.0); Platelet Count Result 215 K/mm3 (150-420); Red Blood Count 4.01 M/mm3 (4.70-6.10); Red Cell Distribution Width 12.2 % (11.6-14.4)
[2022-03-10] MEDS: SODIUM CHLORIDE 0.9% IV 500 ML 999 ML IV CONT (18:36)
[2022-03-10] MEDS: NOREPINEPHRINE 8 MG/D5W 250 ML 8 MG/250 ML BAG 9.38 MG IV CONT (18:36)
[2022-03-10] MEDS: NALOXONE HCL INJ 2 MG/2 ML AMP IV PUSH (18:38)
--- NOTE | 2022-03-10 18:45 | PC.NURSE ---
Called [facility] One Call Transfer line with patient's change in and current condition and reported patient's will be intubated shortly and is in need of an ICU bed. Await return call.
[2022-03-10 18:47] LABS: Partial Thromboplastin Time 36.8 SEC (23.90-30.70); Prothrombin Time 10.6 Seconds (9.50-12.10)
[2022-03-10 18:52] LABS: Lactic Acid 1.3 mmol/L (0.4-2.0)
[2022-03-10 18:56] LABS: Base Excess ABG -0.6 mmol/L (0-2); Device NON-REBREATHER MASK; HCO3 ABG 28.3 mmol/L (23-29); Oxygen Content ABG 17.9 %vol (16.0-22.0); Oxygen Saturation ABG 99.3 % (95-97); Oxyhemoglobin 96.2 % (94-100); PCO2 ABG 67.8 mmHg (35-45); PO2 ABG 133.9 mmHg (75-85); Total Hemoglobin 13.1 g/dL (12.0-18.0); pH ABG 7.24 (7.35-7.45)
[2022-03-10 18:57] LABS: Site Drawn RIGHT RADIAL
[2022-03-10 18:58] LABS: White Blood Count 23.5 K/mm3 (4.8-10.8)
--- NOTE | 2022-03-10 18:59 | PC.NURSE ---
Addendum entered by Kalina Castro, PAT 03/10/22 19:01: GUARDIAN EDYTA, SISTER NALINI, BROTHER WILL THEY DO NOT WANT INTUBATED, OR TRANSFERRED TO BE KEPT HERE AND COMFORTABLE Original Note: PATIENT UNRESPONSIVE, DIFFICULTY BREATHING. I/O STARTED. SPOKE TO OMARI
--- NOTE | 2022-03-10 19:00 | PC.NURSE ---
Called [facility] One Call Transfer line to cancel request for bed.
[2022-03-10 19:01] LABS: Alanine Aminotransferase 24 U/L (16-63); Albumin Level 2.6 g/dL (3.4-5.0); Alkaline Phosphatase 174 U/L (46-116); Anion Gap 6 mmol/L (8-16); Aspartate Amino Transferase 27 U/L (15-37); Blood Urea Nitrogen 6 mg/dL (7-18); Calcium 7.2 mg/dL (8.5-10.1); Carbon Dioxide 26 mmol/L (21-32); Chloride 83 mmol/L (98-108); Estimated CRCL calculation 100 ml/min; Estimated Glomerular Filt Rate > 60; Glucose 88 mg/dL (70-99); NT Pro B Type Natriuretic Pept 2230 pg/mL (0-450); Osmolality Calculated 236 mOsm/kg (285-295); Potassium 3.8 mmol/L (3.5-5.1); Total Protein 6.1 g/dL (6.4-8.2)
[2022-03-10 19:02] LABS: Bilirubin,Total < 0.1 mg/dL (0.00-1.00); Sodium 115 mmol/L (136-145)
[2022-03-10 19:15] LABS: Band Neutrophils Percent 6 % (0-6); Large Platelets Present; Lymphocytes Percent Manual 3 % (18-44); Metamyelocytes Percent 2 %; Monocytes Absolute Manual 0.23 K/mm3 (0.1-0.90); Monocytes Percent Manual 1 % (3-9); Neutrophils Absolute Manual 22.09 K/mm3 (1.3-6.7); Neutrophils Percent Manual 88 % (46-73); Platelet Estimate Adequate (Adequate); Total Cells Counted 100
--- NOTE | 2022-03-10 19:15 | PC.NURSE ---
Care resumed of this pt in ER RM 7 brought down from floor, awaiting healthcare POA to sign DNR POLST. Pt is unresponsive and noted hypotensive c gtt started per 2nd floor running.
[2022-03-10 19:16] LABS: Troponin I 18.9 ng/L (0.00-60.4)
[2022-03-10 19:16] LABS: Schistocytes None Seen (NORMAL)
--- NOTE | 2022-03-10 19:23 | PC.NURSE ---
POLST DNR signed by pts POA vaccine customer representative, witnessed and pt taken back to floor for comfort measures.
--- NOTE | 2022-03-10 19:35 | PC.NURSE ---
Report given to Wong STEWART. Patient on comfort care at this time. IV fluids and medication discontinued. Telemetry pads removed, Non-rebreather removed and replaced with simple mask at 5L. Patient position in bed on left side with pillow. BLE elevated. Patient continues to be unresponsive. Patients family coming in tonight to be with patient.
--- NOTE | 2022-03-10 21:30 | PC.NURSE ---
Pt's family arrived to 2nd floor. This RN answered all questions family had about the pt and situation. This RN also educated family on hospital policy about masks on the floor. Family verbalized understanding of teachings. The visitor by the name of Jesus stated he was familiar w/the s/s of since he had gone through the experience before. This RN notified the family that if they had any further questions, or needs to notify the nurses station. Family verbalized understanding and stated that they will be only staying for so long due to several of them having to commute home. Pt is currently sleeping; showing no signs of distress and is relaxed. Side railsx3, night light on, call light w/in reach of family, and bed in lowest position for pt safety.
--- NOTE | 2022-03-10 21:56 | PC.NURSE ---
17:55 Phone call made to Heather Hernandez Hospitalist, to report patient's condition. No answer at this time.
--- NOTE | 2022-03-10 22:00 | PC.NURSE ---
1809 Message sent to Heather Hernandez Hospitalist, to call floor reyes.
--- NOTE | 2022-03-10 22:01 | PC.NURSE ---
18:15 Second attempt to call Heather Hernandez Hospitalist, regarding patient's status. Voice mail left to call floor back ALICIA.
--- NOTE | 2022-03-10 22:03 | PC.NURSE ---
20:25 Charge nurse called and spoke to Heather Hernandez, Hospitalist, to give brief explanation of patient's course of events and current status.
[2022-03-10] MEDS: SCOPOLAMINE 1.5 MG PATCH TRANSDERM (22:11)
--- NOTE | 2022-03-10 22:58 | PC.NURSE ---
2 of the 4 visitors are leaving. The family members from [place] stated they are going to stay longer to see how the pt progresses through the night. Family members stated they have no needs at this time. Pt is resting showing no signs of discomfort. Side railsx3, night light on, bed in lowest position for pt safety.
--- NOTE | 2022-03-10 23:32 | PC.NURSE ---
This RN w/assistance provided by Inna Astudillo RN turned and repositioned the pt. Soiled depend removed and pt was cleaned w/hygiene wipes. Urine was present in the depend and pt had a scant amount of brown stool. A clean depend placed on the pt. Pillows and blanket brought to family members that area staying the night w/the pt. Bed in lowest position, side railsx3, night light on, and visitors at bedside for pt safety.
[2022-03-11 00:23] VITALS: O2SAT 92
--- NOTE | 2022-03-11 00:23 | PC.NURSE ---
Pt's family member asked on pt status. Pt's skin is warm to touch, but does appear mottled. Pt's SPO2 level has dropped by 5% to 92% w/a simple face mask and 5L O2. Pt's family member educated on s/s of process. Pt family is hopeful that the pt will rebound, but is aware of pt's status w/decline. Family verbalized understanding of teaching. Family reeducated on using call light if they notice a change in pt status or have any needs. Side railsx3, night light on, bed in lowest position, and visitor at bedside for pt safety.
--- NOTE | 2022-03-11 01:16 | PC.NURSE ---
Pt turned and positioned; Pt appears to be resting and family is at bedside. Side railsx3, night light on, visitors at bedside, and bed in lowest position for pt safety.
--- NOTE | 2022-03-11 01:35 | PM.CCN ---
Critical Care Event Note Summary Code activated: No Narrative: This case had a high probability of a clinically significant, sudden, or life threatening deterioration of this patient's condition which required my full and direct attention, intervention and personal management. Critical care time: 30 - 74 mins
--- NOTE | 2022-03-11 01:42 | P.ENSEP_ITS ---
Severe Sepsis Evaluation Initial hypotension due to sepsis/infection: SBP < 90 mmHg Persistent hypotension after fluid resuscitation: SBP < 90 mmHg Current stage of sepsis: severe sepsis Date sepsis identified: 03/10/22 Time sepsis identified: 18:05 If septic shock, document one of the following three assessments within 6 hrs of determining septic shock. 1) Review of Systems Sepsis re-evaluation: Sepsis re-evaluation was performed. Date ROS was performed: 03/10/22 Time ROS was performed: 20:00 2) Focused Exam Need to answer all in this section. Vital signs: Vital Signs Temp Pulse Resp BP Pulse Ox O2 Del Method O2 Flow Rate 03/11/22 00:23 92 Simple Face Mask 5 03/10/22 20:00 36.2 C L 80 13 50/30 L 97 Simple Face Mask 5 03/10/22 19:15 36.4 C L 94 19 68/51 L 99 Non-Rebreather Mask 15 03/10/22 19:08 96 15 65/44 L 100 Non-Rebreather Mask 15 03/10/22 19:02 36.3 C L 94 18 85/52 L 99 Non-Rebreather Mask 15 03/10/22 18:58 98 24 H 79/51 L 98 Non-Rebreather Mask 15 03/10/22 18:45 84 22 H 80/50 L 99 Non-Rebreather Mask 18 03/10/22 18:38 36.3 C L 86 22 H 80/46 L 100 Non-Rebreather Mask 15 03/10/22 18:25 85 22 H 55/30 L 99 Non-Rebreather Mask 15 03/10/22 18:20 85 22 H 51/37 L 99 Non-Rebreather Mask 15 03/10/22 18:15 85 24 H 55/33 L 100 Non-Rebreather Mask 15 03/10/22 18:10 85 24 H 66/48 L 95 Non-Rebreather Mask 15 03/10/22 18:00 90 24 H 70/40 L 82 L Nasal Cannula 6 03/10/22 20:31 85 97 Simple Face Mask 5 03/10/22 17:55 36.2 C L 85 24 H 57/40 L 72 L Room Air 03/10/22 20:08 36.3 C L 85 25 H 70/40 L 72 L Room Air Respiratory exam: Present accessory muscle use, rales and rhonchi Cardiovascular exam: RRR Capillary refill: > 2 Seconds (Pt family came to the hospital and made patient DNR: no intubation or CPR. Comfort measures only were requested. S: pt was not communicative and had a non-rebreather mask with 15L oxygen. O: pt was breathing on his own. HEENT: no acute abnormality. CVS: both heart sounds were heard. RESP:) Peripheral pulse strength: 2+ Slightly Diminished Peripheral pulse location: Radial Skin exam: normal turgor Date exam was performed: 03/20/22 Time exam was performed: 14:11 3) Bedside Monitoring Fluid challenge response: fluid responsive Date bedside monitoring was performed: 03/20/22 Time bedside monitoring was performed: 14:11 Problem List (1) Electrolyte imbalance: Code(s): E87.8 - Other disorders of electrolyte and fluid balance, not elsewhere classified Status: Acute Assessment and Plan: IV Normal saline Plan Exam: ABD: benign MS: mild ankle edema. [employer]: GCS 12. Pt did not participate in the Neuro exam. Diagnosis: 1. Sepsis. 2. CHF. 3. Pneumonia. 4. UTI. PLAN: 1. Change to DNR 2. Comfort measures only.
--- NOTE | 2022-03-11 03:50 | PC.NURSE ---
Pt turned and repositioned. Pt's feet are very cool to the touch. Pt's family stepped out while this RN and assistance provided by Kadi Ng RN changed the pt's soiled depend. A clean one was placed onto the pt. Side railsx3, night light on, and bed in lowest position for pt safety.
[2022-03-11 03:52] VITALS: BP 35/22; PULSE 76; RESP 20; TEMP 36.1; O2SAT 95
--- NOTE | 2022-03-11 04:21 | PC.NURSE ---
Pt's family came to the nurses station and requested that the facility contacted a aluminum sheet cutter since the pt is hinduism and give him his last rights. Family stated they had no specific preference on which parish/aluminum sheet cutter and that local is fine. Inna Astudillo RN, charge nurse attempting to contact [facility] here in [place].
--- NOTE | 2022-03-11 04:32 | PC.NURSE ---
The charge nurse was able to contact a Father Nadeem who is the manager retail store for [employer] in [place]. Father Nadeem stated he will be over as soon as he can. Family notified and verbalized their appreciation.
--- NOTE | 2022-03-11 05:12 | PC.NURSE ---
Father Nadeem has arrived to the hospital and was taken to the pt room. Family and the administrative appeals tribunal member are proceeding w/anointing the pt. This RN communicated to the family if they have any needs to let the nurses station know.
--- NOTE | 2022-03-11 07:24 | PC.NURSE ---
Dr Méndez in ED notified of patient . Tono Hernandez notified of patient .
--- NOTE | 2022-03-11 08:33 | P.DN_ITS ---
Discharge Summary Date and Time Date of : 03/11/22 Time of : 07:16 Provider Pronounced By: Joshua Cordoba RN and Wong Conway RN Probable Cause of Probable Cause of : Respiratory failure Summary Hospital Course: [facility] [place] [address] [place] [address] History & Physical Report Signed Patient: Ko Rehman MR#: [id number] : 1945 Acct:[id number] Age/Sex: 77 / M ADM Date: 03/08/22 [id number]: Jas Duran MD cc: Murray Duran MD; Amanda Alejandro MD; Evangelista Su MD~ H&P: HPI History of Present Illness Date/Time: 03/09/22? 05:50 Chief Complaint: hyponatremia Narrative: This is a 77 YO male that presented [facility] ED from [facility] [place] due to adnormal labs. Patient NA was 116 at the halfway repeat in the emergency department 113.? Patient has a past medical history of CVA, hyperlipidemia, hyponatremia, paraplegia, polio, and seizure.? Patient is a poor historian all information obtained from medical record. Patient was given fluid , no improvement was placed on fluid restriction.Rapid response called.Patient taked to the Ed managed by ER MD. At that time patient was in process of being intubated and transferred. Family decline intubation and made patient comfort care. Patient at 7:16. Additional Data Confirmation of as documented by pronouncing clinician: Pupillary Reflex, Palpable Pulses, Response to Stimuli, Heart Tones and Breath Sounds Name of Provider Notified: Dr Dev Styles Time Provider Notified: 07:20 Provider Requests Autopsy: No Date [facility] Notified of : 03/11/22 Time [facility] Notified of : 07:35
--- NOTE | 2022-03-11 09:25 | PC.NURSE ---
Called [facility] again, awaiting call back after talk with family, patient did sign up for [place] registry, is eligible
--- NOTE | 2022-03-11 10:22 | PC.NURSE ---
Pt at 0716. verified by [facility] & [facility] mason RNs. Pt assesed for signs od life for 1 full minute. No respirations, no pulse noted no muscular activity. Condolences given to family . Family requests [facility] in [place].
--- NOTE | 2022-03-11 10:33 | PC.NURSE ---
[facility] contacted, still waiting to talk with family, ask to hold patient at this time,
--- NOTE | 2022-03-11 10:40 | PC.NURSE ---
Kris from [facility] called , no contact made with POA/cousin, ok to release to home as long as they are aware that we are waiting for call back from family regarding organ/tissue donation
--- NOTE | 2022-03-11 10:44 | PC.NURSE ---
[facility] contacted as per family wishes, [facility] informed us that they need to be aware contact with family not made yet, will call them when they have made contact regarding donation, updated home on these instructions
--- NOTE | 2022-03-11 10:59 | PC.NURSE ---
Rodrigo Tom called from [facility], currently with another family and will be out as soon as he can.
--- NOTE | 2022-03-11 11:55 | PC.NURSE ---
Body released to Rodrigo Tom from [facility]
== END 2022-03-11 07:16 | disposition expired ==
LOC: CHSED 19:57 → CHS2ND 20:02
PROVIDERS: Nurse Practitioner; Admitting Provider Internal Medicine; Emergency Provider Emergency Medicine; PCP Family Medicine; Visit Provider Internal Medicine
DX: E87.1 Hypo-osmolality and hyponatremia (principal); A41.9 Sepsis, unspecified organism; J18.9 Pneumonia, unspecified organism; N39.0 Urinary tract infection, site not specified; J20.9 Acute bronchitis, unspecified; I50.9 Heart failure, unspecified; E78.5 Hyperlipidemia, unspecified; G82.20 Paraplegia, unspecified; G40.909 Epilepsy, unspecified, not intractable, without status epilepticus; Z86.73 Personal history of transient ischemic attack (TIA), and cerebral infarction without residual deficits; Z86.12 Personal history of poliomyelitis; Z79.82 Long term (current) use of aspirin; Z66 Do not resuscitate
CPT/HCPCS: 36415; 36600; 70450; 71045; 80053; 81001; 82805; 83605; 83735; 83880; 84484; 85025; 85027; 85610; 85730; 87077; 87086; 87088; 87186; 93005; 96361; 96365; 96372; 96375; 99285; A9270; C9113; G0378; J1650; J2310; J7030; J7040